=== PATIENT | male | born 1955 | race Caucasian/White ===

== ENCOUNTER → 2019-10-07 | Outpatient (CLI) | payer OTHER ==
[~2019-10-07] MED LIST: GLIM2TAB7 PO; LISI-167 PO; METF500T17 PO; SIMV20TA19 PO
[2019-10-07 13:44] LABS: BASOPHILS # (AUTO) 0.05 x10^3/uL (0-0.1); BASOPHILS % (AUTO) 1 % (0-1); EOSINOPHILS # (AUTO) 0.05 x10^3/uL (0-0.4); EOSINOPHILS % (AUTO) 1 % (1-7); LYMPHOCYTES # (AUTO) 2.97 x10^3/uL (1-3.4); LYMPHOCYTES % (AUTO) 29 % (22-44); MD NO; MEAN CORPUSCULAR HGB CONC 33.8 g/dL (33.2-36.2); MEAN PLATELET VOLUME 7.5 fL (7.4-10.4); MONOCYTES # (AUTO) 0.74 x10^3/uL (0.2-0.8); MONOCYTES % (AUTO) 7 % (2-9); NEUTROPHILS % (AUTO) 62 % (42-75); PLATELET COUNT 285 x10^3/uL (130-400); RED BLOOD COUNT 5.13 x10^6/uL (4.38-5.82); RED CELL DISTRIBUTION WIDTH 13.7 % (9.4-14.8)
[2019-10-07 13:55] LABS: ALBUMIN 3.6 g/dL (3.4-5.0); ANION GAP 5 mmol/L (5-15); CALCIUM 9.1 mg/dL (8.5-10.1); CHLORIDE 108 mmol/L (98-107)
[2019-10-07 13:58] LABS: ALANINE AMINOTRANSFERASE 49 U/L (12-78); ALKALINE PHOSPHATASE 76 U/L (45-117); BILIRUBIN,TOTAL 0.4 mg/dL (0.2-1.0); CREATININE 1.14 mg/dL (0.7-1.3); TOTAL PROTEIN 7.2 g/dL (6.4-8.2)
[2019-10-07 14:30] LABS: MICROSCOPIC NOT IND
== END | disposition home or self-care (01) ==
LOC: STAR 12:48
PROVIDERS: ATTEND Orthopaedic Surgery
DX: Z01.818 Encounter for other preprocedural examination (principal); M16.11 Unilateral primary osteoarthritis, right hip
CPT/HCPCS: 36415; 80053; 81003; 85025; 87081; 87806; 93005; G0475

== ENCOUNTER 2019-10-18 05:55 | Observation (INO) | payer OTHER ==
[~2019-10-18] VITALS: Ht 172.7 cm; Wt 125.3 kg
[2019-10-18] MEDS ORDERED: VANCOMYCIN PMX 1GM/200ML 200 ML IV ONE (06:30)
[2019-10-18] MEDS ORDERED: LACTATED RINGERS 1,000 ML IV SCH (06:41)
[2019-10-18] MEDS ORDERED: KETOROLAC 60 MG/2 ML ONE (06:43)
[2019-10-18] MEDS ORDERED: morphine SULFATE/PF 1 MG/ML, 10ML ONE (06:43)
[2019-10-18] MEDS ORDERED: TRANEXAMIC ACID 100 MG/ML, 10ML ONE (06:43)
[2019-10-18] MEDS ORDERED: ROPIvacaine/PF 0.2%, 20 ML ONE (06:44)
[2019-10-18] MEDS ORDERED: EPINEPHRINE 1 MG/ML, 1ML ONE (06:44)
[2019-10-18] MEDS ORDERED: SODIUM CHLORIDE 0.9% 50 ML ONE (06:44)
[2019-10-18] MEDS ORDERED: BACITRACIN 50,000 UNIT ONE (06:44)
[2019-10-18] MEDS ORDERED: CHLORHEXIDINE 15 ML UDC MM ONE (07:00)
[2019-10-18] MEDS ORDERED: MIDAZOLAM 1 MG/ML, 2ML ONE (07:14)
[2019-10-18] MEDS ORDERED: FENTANYL PF 250 MCG/5ML ONE ×2 (07:14→08:25)
[2019-10-18] MEDS ORDERED: GABAPENTIN 300 MG CAPSULE ONE (07:22)
[2019-10-18] MEDS ORDERED: ACETAMINOPHEN 500 MG TABLET ONE (07:22)
[2019-10-18] MEDS ORDERED: D5%-0.45% NACL 1,000 ML IV SCH (07:37)
[2019-10-18] MEDS ORDERED: LORazepam 2 MG/ML, 1ML IVPush PRN (08:00)
[2019-10-18] MEDS ORDERED: TRANEXAMIC ACID 1,000 MG in SODIUM CHLORIDE 0.9% 100 ML IV ONE (08:00)
[2019-10-18] MEDS ORDERED: ONDANSETRON 2MG/ML, 2ML IVPush PRN ×2 (08:00→11:30)
[2019-10-18] MEDS ORDERED: DIPHENHYDRAMINE 50 MG CAPSULE PO PRN (08:00)
[2019-10-18] MEDS ORDERED: ACETAMINOPHEN 325 MG TABLET PO PRN (08:00)
[2019-10-18] MEDS ORDERED: morphine SULFATE 10 MG/ML, 1ML IVPush PRN (08:00)
[2019-10-18] MEDS ORDERED: CEFAZOLIN 1,000 MG ONE (08:29)
[2019-10-18] MEDS ORDERED: SUCCINYLCHOLINE 20 MG/ML, 10ML ONE (08:29)
[2019-10-18] MEDS ORDERED: ONDANSETRON 2MG/ML, 2ML ONE (08:29)
[2019-10-18] MEDS ORDERED: GLYCOPYRROLATE 0.2MG/1ML, 5ML ONE (08:29)
[2019-10-18] MEDS ORDERED: NEOSTIGMINE 1 MG/ML, 10ML ONE (08:29)
[2019-10-18] MEDS ORDERED: DEXAMETHASONE 4 MG/ML, 1ML ONE (08:29)
[2019-10-18] MEDS ORDERED: ROCURONIUM 10MG/ML,5ML ONE (08:29)
[2019-10-18] MEDS ORDERED: PROPOFOL 10 MG/ML, 20ML ONE (08:29)
[2019-10-18] MEDS ORDERED: FENTANYL PF 100 MCG/2ML ONE ×3 (10:11→11:26)
[2019-10-18] MEDS ORDERED: SODIUM CHLORIDE 0.9% 1,000 ML IV SCH (11:00)
[2019-10-18] MEDS: FENTANYL PF 100 MCG/2ML IV PRN ×4 (11:00→11:35)
[2019-10-18] MEDS: SODIUM CHLORIDE 0.9% 1,000 ML IV SCH ×3 (11:08→23:30)
[2019-10-18] MEDS ORDERED: OXYcodone 5 MG/5 ML ORAL.SOL UDC ONE (11:19)
[2019-10-18] MEDS ORDERED: HYDROmorphone 1 MG/ML, 1ML INJ IVPush PRN (11:30)
[2019-10-18] MEDS ORDERED: MEPERIDINE/PF 25MG/0.5ML IVPush PRN ×2 (11:30)
[2019-10-18] MEDS ORDERED: OXYcodone 5 MG/5 ML ORAL.SOL UDC PO PRN ×2 (11:30)
[2019-10-18] MEDS ORDERED: MIDAZOLAM 1 MG/ML, 2ML IV PRN (11:30)
[2019-10-18] MEDS ORDERED: DIAZEPAM 5 MG/ML, 2ML IVPush PRN (11:30)
[2019-10-18] MEDS ORDERED: HYDROmorphone 2 MG/ML, 1ML IVPush PRN (11:30)
[2019-10-18] MEDS ORDERED: FENTANYL PF 100 MCG/2ML IV PRN (11:30)
[2019-10-18] MEDS ORDERED: PROMETHAZINE 25 MG/ML, 1ML IV PRN (11:30)
[2019-10-18] MEDS ORDERED: ALBUTEROL SULFATE 2.5 MG/3 ML NPPB PRN (11:30)
[2019-10-18] MEDS ORDERED: hydrALAzine 20 MG/ML, 1ML IV PRN ×2 (11:30)
[2019-10-18] MEDS ORDERED: LABETALOL 5MG/ML, 20ML IV PRN ×2 (11:30)
[2019-10-18 13:32] VITALS: BP 96/61
[2019-10-18] MEDS: CEFAZOLIN PMX 2GM/50ML 50 ML IVPB SCH (16:22)
[2019-10-18 20:08] VITALS: BP 105/59
[2019-10-18] MEDS ORDERED: ZOLPIDEM 5MG TABLET PO PRN (21:00)
[2019-10-18] MEDS ORDERED: SIMVASTATIN 20 MG TABLET PO SCH (21:00)
[2019-10-18] MEDS: OXYcodone/APAP 7.5/325MG TABLET PO PRN (21:41)
[2019-10-18 23:52] VITALS: BP 107/60
[2019-10-19] MEDS: CEFAZOLIN PMX 2GM/50ML 50 ML IVPB SCH ×2 (00:15→08:44)
[2019-10-19 03:41] VITALS: BP 111/69
[2019-10-19] MEDS: SODIUM CHLORIDE 0.9% 1,000 ML IV SCH ×3 (04:30→14:30)
[2019-10-19] MEDS: OXYcodone/APAP 7.5/325MG TABLET PO PRN ×3 (05:41→14:27)
[2019-10-19] MEDS ORDERED: VANCOMYCIN PMX 1GM/200ML 200 ML IVPB ONE (07:00)
[2019-10-19] MEDS ORDERED: metFORMIN 500 MG TABLET PO SCH (08:00)
[2019-10-19] MEDS ORDERED: ASPIRIN 325 MG TABLET EC PO SCH (08:00)
[2019-10-19] MEDS ORDERED: GLIMEPIRIDE 1 MG TABLET PO SCH (08:00)
[2019-10-19 08:29] VITALS: BP 106/61
[2019-10-19] MEDS ORDERED: DOCUSATE 100 MG CAPSULE PO SCH (09:00)
[2019-10-19] MEDS ORDERED: LISINOPRIL 10 MG TABLET PO SCH (09:00)
[2019-10-19 13:39] VITALS: BP 93/55
[2019-10-19 14:08] VITALS: BP 101/57
[2019-10-19] MEDS ORDERED: ASPI81TA45 PO (15:23)
== END 2019-10-19 15:51 | disposition home or self-care (01) ==
LOC: OUT 05:55 → 4NE 12:07 → OUT 13:22 → 4NE 13:22 → DCLOUNGE 10-19 15:39
PROVIDERS: ADMIT Orthopaedic Surgery; ATTEND Orthopaedic Surgery
DX: Z03.818 Encounter for observation for suspected exposure to other biological agents ruled out (principal); M16.11 Unilateral primary osteoarthritis, right hip; G47.33 Obstructive sleep apnea (adult) (pediatric); E11.9 Type 2 diabetes mellitus without complications; I10 Essential (primary) hypertension; E66.9 Obesity, unspecified; Z79.899 Other long term (current) drug therapy
CPT/HCPCS: 27130; 36415; 73501; 82962; 86850; 86900; 87635; 93971; 96365; 96366; 96367; 97110; 97161; 97165; C1713; C1776; G0378; J0171; J0330; J0690; J1100; J1885; J2250; J2274; J2405; J2704; J2710; J2795; J3010; J3370; J7030; J7120